=== PATIENT | female | born 1970 | race Caucasian/White ===

== ENCOUNTER 2025-06-07 07:43 | Outpatient (CLI) | payer OTHER, SELFPAY ==
--- NOTE | ~2025-06-07 | XR_ITS ---
XR knee LT 3V 06/07/2025 08:20 INDICATION: Left knee pain PROCEDURE: 3 views left knee COMPARISON: No prior studies for comparison. FINDINGS: Fracture, dislocation or subluxation is not identified. No joint effusion. The soft tissues appear within normal limits. No foreign bodies are identified. Small loose bodies present anterior to the joint space, likely related to degenerative change. There is mild medial compartmental osteoar thritis. IMPRESSION: 1: Mild osteoarthritis of the left knee. Reviewed, dictated and finalized at location O. [employer]
== END 2025-06-07 07:44 | disposition home or self-care (01) ==
LOC: MICIMG 07:47
DX: M17.12 Unilateral primary osteoarthritis, left knee (principal); S83.92XA Sprain of unspecified site of left knee, initial encounter
CPT/HCPCS: 73562